=== PATIENT | female | born 1980 | race African-American/Black ===

== ENCOUNTER 2018-12-28 13:54 | Emergency (ER) | payer OTHER ==
--- NOTE | 2018-12-28 14:17 | PDOC ---
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 Over the weekend the pain was moderately controlled yesterday while again assisting with moving a patient and developed severe lower back discomfort Pain is moderate to severe worsening ambulation alleviated somewhat by rest no associated incontinence no fever no chills no chest pain or shortness of breath no nausea no vomiting diarrhea Past History - Past Medical History Allergies/Adverse Reactions: Allergies Allergy/AdvReac Type Severity Reaction Status Date / Time No Known Allergies Allergy Unverified 12/28/18 14:18 Home Medications: Ambulatory Orders Cyclobenzaprine HCl [Flexeril 10 mg] 1 tab PO PRN 12/28/18 Diazepam [Valium] 5 mg PO BID #10 tablet MDD 2 12/28/18 Ibuprofen [Motrin -] 800 mg PO PRN 12/28/18 Methylprednisolone [Medrol Dose Earl] 4 mg PO ASDIR #21 tablet 12/28/18 COPD: No Other medical history: DENIES - Suicide/Smoking/Psychosocial Hx Smoking History: Never smoked Information on smoking cessation initiated: No Hx Alcohol Use: No Drug/Substance Use Hx: No Review of Systems - Review of Systems Comments:: 12/28/18 17:54 ROS: A complete review of 10 out of 10 review of systems is taken and is negative apart from what is previously mentioned below and in the HPI. *Physical Exam - Vital Signs Last Vital Signs Temp Pulse Resp BP Pulse Ox 97.8 F 68 18 138/78 99 12/28/18 13:55 12/28/18 13:55 12/28/18 13:55 12/28/18 13:55 12/28/18 13:55 - Physical Exam Comments: 12/28/18 17:54 ED Treatment Course - LABORATORY CBC & Chemistry Diagram: 12/28/18 14:55 12/28/18 14:55 Medical Decision Making - Medical Decision Making 12/28/18 17:58 Moderate discomfort worsening lower back discomfort some CVA tenderness on exam we'll check labs urine CT to rule out occult fracture and renal colic observe and reassess Reevaluation pain initially controlled now returning CAT scan negative labs unremarkable urinalysis unremarkable at this time diagnosis is most likely low back discomfort muscle skeletal versus herniated disc patient will most likely require outpatient follow-up and MRI We'll try dose of Decadron and Valium observe and reassess. 12/28/18 18:24 Patient feels better able to ambulate with cane still in some discomfort but would like to try to go home I discussed my concern of a possible herniated disc with her I provided her with neurosurgical follow-up her repeat neurologic exam demonstrates good strength in her lower extremities We will discharge home with Medrol Dosepak and Valium and close follow-up Findings, the need for follow-up and strict return instructions discussed with patient. *DC/Admit/Observation/Transfer Diagnosis at time of Disposition: Low back pain Qualifiers: Chronicity: acute Back pain laterality: right Sciatica presence: without sciatica Qualified Code(s): M54.5 - Low back pain - Discharge Dispostion Disposition: HOME Condition at time of disposition: Stable Decision to Admit order: No - Prescriptions Prescriptions: Diazepam [Valium] 5 mg PO BID #10 tablet MDD 2 Methylprednisolone [Medrol Dose Earl] 4 mg PO ASDIR #21 tablet - Referrals Referrals: Solomon Esquivel MD, FAANS [Staff Physician] - - Patient Instructions Printed Discharge Instructions: Low Back Pain Additional Instructions: Medrol Dosepak as prescribed. Valium as prescribed. Follow-up with Dr. Gooden in 1-2 days. Ice lower back rest. Do not work. Return to ED immediately for any weakness numbness bowel or bladder incontinence or for any concerns. - Post Discharge Activity Forms/Work/School Notes: Back to Work
[2018-12-28 14:24] VITALS: BMI 32.9
[2018-12-28] MEDS ORDERED: SODIUM CHLORIDE 0.9% 1000 ML INFUS.BAG IV ONE (14:37)
[2018-12-28] MEDS ORDERED: morphine CARPU-JECT 4 MG/1 ML DISP.SYRIN IVPUSH ONE (14:37)
[2018-12-28] MEDS ORDERED: ACETAMINOPHEN 1000 MG/100 ML VIAL (NON FORMULARY) IVPB ONE (14:37)
[2018-12-28] MEDS ORDERED: ACETAMINOPHEN INJECTION 100 ML IVPB ONE (14:58)
[2018-12-28] MEDS ORDERED: morphine SULFATE 4 MG/ML VIAL ONE (15:05)
[2018-12-28 15:40] LABS: EPITHELIAL CELLS FEW /hpf
[2018-12-28 15:41] LABS: BASO % 0.9 % (0-2.0); EOS % 1.3 % (0-4.5); HEMATOCRIT 38.7 % (32.4-45.2); HEMOGLOBIN 13.1 GM/dl (10.7-15.3); LYMPH % 31.1 % (8-40); MCH 31.2 pg (25.7-33.7); MCHC 33.7 g/dl (32.0-36.0); MEAN CELL VOLUME 92.4 fl (80-96); MEAN PLT VOLUME 9.5 fl (7.5-11.1); MONO % 6.7 % (3.8-10.2); PLATELET COUNT 243 K/MM3 (134-434); RBC 4.19 M/mm3 (3.60-5.2); RDW 11.8 % (11.6-15.6); WHITE BLOOD COUNT 8.7 K/mm3 (4.0-10.8)
[2018-12-28 15:47] LABS: ALBUMIN 4.3 g/dl (3.4-5.0); BILIRUBIN,TOTAL 0.7 mg/dl (0.2-1); CALCIUM 9.2 mg/dl (8.5-10); CREATININE 0.8 mg/dl (0.55-1.3); POTASSIUM 3.9 mmol/L (3.5-5.1); TOT PROT 7.1 g/dl (6.4-8.2)
[2018-12-28 16:32] VITALS: BP 125/83; PULSE 81; TEMP 98.2
[2018-12-28] MEDS ORDERED: diazePAM 5 MG TABLET PO ONE (17:09)
[2018-12-28] MEDS ORDERED: DEXAMETHASONE SOD PHOSPHATE 4 MG/1 ML VIAL IVPUSH ONE (17:09)
[2018-12-28] MEDS ORDERED: DEXAMETHASONE SOD PHOSPHATE 4 MG/1 ML VIAL ONE (17:13)
[2018-12-28] MEDS ORDERED: diazePAM 5 MG TABLET ONE (17:13)
[2018-12-28] MEDS ORDERED: KETOROLAC TROMETHAMINE 30 MG/1 ML VIAL ONE (18:08)
[2018-12-28] MEDS ORDERED: LIDOCAINE 5% TOPICAL PATCH ONE (18:08)
[2018-12-28] MEDS ORDERED: KETOROLAC TROMETHAMINE 30 MG/1 ML VIAL IVPUSH ONE (18:13)
[2018-12-28] MEDS ORDERED: LIDOCAINE 5% TOPICAL PATCH TP ONE (18:13)
[2018-12-28] MEDS ORDERED: LIDOCAINE PATCH REMOVAL MC SCH (22:00)
== END 2018-12-28 18:38 | disposition home or self-care (01) ==
LOC: FER 13:54
PROC: 3E0337Z Introduction of Electrolytic and Water Balance Substance into Peripheral Vein, Percutaneous Approach (ICD-10-PCS; principal; 2018-12-28)
PROC: 3E033NZ Introduction of Analgesics, Hypnotics, Sedatives into Peripheral Vein, Percutaneous Approach (ICD-10-PCS; 2018-12-28)
PROC: 3E0333Z Introduction of Anti-inflammatory into Peripheral Vein, Percutaneous Approach (ICD-10-PCS; 2018-12-28)
PROC: 3E033GC Introduction of Other Therapeutic Substance into Peripheral Vein, Percutaneous Approach (ICD-10-PCS; 2018-12-28)
DX: M54.5 Low back pain (principal)
CPT/HCPCS: 36415; 74176-TC; 80053; 81003; 81015; 81025; 85025; 87077; 87086; 99283-25; J0131; J7030

== ENCOUNTER 2018-12-31 16:37 | Inpatient (IN) | payer OTHER ==
--- NOTE | 2018-12-31 16:47 | PDOC ---
History of Present Illness - General Chief Complaint: Back Pain Stated Complaint: BACK PAIN Time Seen by Provider: 12/31/18 16:47 History Source: Patient - History of Present Illness Initial Comments: 12/31/18 17:51 Chief complaint: Back pain pt is a healthy 38-year-old female who injured her back the beginning of been progressively getting worse. She was seen in the ER December 28, had labs, CT scan of abdomen and pelvis given that she had flank pain which showed no issue other than likely musculoskeletal pain. Patient had been taking Motrin 800 mg about every 4 hours. Patient was sent home on Valium, Medrol Dosepak and lidocaine patches. She followed up with Dr. Chandler neurosurgery and was supposed to get an MRI. In the past few days since she was seen in the ER the pain has gotten much worse to the point where patient was crying today. She was told to come to the ER for further evaluation. Dr. Chandler called the ER recommending labs, preop, MRI and he will evaluate to see if patient needs surgery. Patient denies any numbness, incontinence or saddle anesthesia but isn' t so much pain she is having difficulty walking. GENERAL/CONSTITUTIONAL: No fever, weakness. dizziness HEAD, EYES, EARS, NOSE AND THROAT: No change in vision. No ear pain or discharge. No sore throat. CARDIOVASCULAR: No chest pain RESPIRATORY: No shortness of breath or cough GASTROINTESTINAL: No pain, nausea, vomiting, diarrhea or constipation GENITOURINARY: No dysuria MUSCULOSKELETAL: No neck +back pain SKIN: No rash NEUROLOGIC: No headache, vertigo, loss of consciousness, or loss of sensation. GENERAL: The patient is awake, alert, and fully oriented, in no acute distress. HEAD: Normal with no signs of trauma. EYES: Pupils equal, round and reactive to light, sclera anicteric, conjunctiva clear. ENT: pharynx: no erythema, no exudate, uvula midline NECK: supple CHEST: clear, nontender, rr ABD: soft, nontender BACK: + left si tenderness EXTREMITIES: Normal range of motion, no edema. nv intact NEUROLOGICAL: Normal speech, unable to ambulate secondary to pain. no focal deficits. SKIN: Warm, Dry Past History - Past Medical History Allergies/Adverse Reactions: Allergies Allergy/AdvReac Type Severity Reaction Status Date / Time No Known Allergies Allergy Verified 12/31/18 16:39 Home Medications: Ambulatory Orders Cyclobenzaprine HCl [Flexeril 10 mg] 1 tab PO PRN 12/28/18 Diazepam [Valium] 5 mg PO BID #10 tablet MDD 2 12/28/18 Ibuprofen [Motrin -] 800 mg PO PRN 12/28/18 Lidocaine 5% Patch [Lidoderm Patch -] 1 patch TP DAILY #7 patch 12/28/18 Methylprednisolone [Medrol Dose Earl] 4 mg PO ASDIR #21 tablet 12/28/18 COPD: No - Suicide/Smoking/Psychosocial Hx Smoking History: Never smoked Hx Alcohol Use: No Drug/Substance Use Hx: No ED Treatment Course - LABORATORY CBC & Chemistry Diagram: 12/31/18 17:10 12/31/18 17:10 Medical Decision Making - Medical Decision Making 12/31/18 18:02 Healthy 38-year-old female with progressively worsening left back pain, which started after injury at work, now progressing down the leg, no numbness, no incontinence or saddle anesthesia but unable to control symptoms at home, unable to ambulate. Has seen neurosurgery. As directed by Dr. Perez, patient will get labs, MRI and he will further evaluate after MRI to see if immediate surgery is indicated. She will be kept nothing by mouth 12/31/18 21:32 MRI is complete, official reading reviewed by Dr. Esquivel who states there is no surgical issue but if patient is still in the same pain she should be admitted to the hospital and he will see her tonight tomorrow for stabilization and possible epidural. Micro-block sent to hospitalist this patient's PMD is in [place] and not on staff 12/31/18 22:11 Bank reports that patient has antibodies in her blood but they did not have enough blood to run a, if patient needs full type and screen, it should be re- sent 12/31/18 22:46 Pt will be admitted by Dr. Kingsley, hospitalist *DC/Admit/Observation/Transfer Diagnosis at time of Disposition: Intractable low back pain - Discharge Dispostion Condition at time of disposition: Stable Decision to Admit order: Yes - Referrals - Patient Instructions - Post Discharge Activity
[2018-12-31] MEDS ORDERED: morphine CARPU-JECT 4 MG/1 ML DISP.SYRIN IVPUSH ONE ×2 (17:07→21:23)
[2018-12-31] MEDS ORDERED: morphine SULFATE 4 MG/ML VIAL ONE ×2 (17:13→22:39)
[2018-12-31 17:43] LABS: BASO % 0.5 % (0-2.0); EOS % 0.1 % (0-4.5); HEMATOCRIT 39.1 % (32.4-45.2); HEMOGLOBIN 13.4 GM/dL (10.7-15.3); LYMPH % 23.5 % (8-40); MCHC 34.2 g/dl (32.0-36.0); MEAN CELL VOLUME 90.8 fl (80-96); MEAN PLT VOLUME 8.9 fl (7.5-11.1); MONO % 6.8 % (3.8-10.2); NEUT % 69.1 % (42.8-82.8); PLATELET COUNT 289 K/MM3 (134-434); RBC 4.31 M/mm3 (3.60-5.2); RDW 12.7 % (11.6-15.6); WHITE BLOOD COUNT 14.7 K/mm3 (4.0-10.0)
[2018-12-31 18:14] LABS: INR 0.96 (0.83-1.09); PROTHROMBIN TIME (PATIENT) 11.3 SEC (9.7-13.0)
[2018-12-31 18:19] LABS: ALBUMIN 3.8 g/dl (3.4-5.0); BILIRUBIN,TOTAL 0.3 mg/dL (0.2-1); BLOOD UREA NITROGEN 19.4 mg/dL (7-18); CALCIUM 9.6 mg/dL (8.5-10.1); CREATININE 0.7 mg/dL (0.55-1.3); POTASSIUM 4.3 mmol/L (3.5-5.1); TOT PROT 7.4 g/dl (6.4-8.2)
--- NOTE | 2018-12-31 23:03 | PN ---
Teaching Attending Note Name of Resident: Radha Ahumada ATTENDING PHYSICIAN STATEMENT I saw and evaluated the patient. I reviewed the resident's note and discussed the case with the resident. I agree with the resident's findings and plan as documented. SUBJECTIVE: Patient is a 38 year old woman with PMH of breast lumpectomy who injured her back while lifting a patient in the beginning of presenting with progressively worsening low back pain. She was seen in the ER on December 28, 2018 - CT scan of abdomen and pelvis was unremarkable. Patient had been taking Motrin 800 mg about every 4 hours. Patient was sent home on Valium, Medrol Dosepak and lidocaine patches. She followed up with Dr. Chandler neurosurgery and was supposed to get an MRI. In the past few days since she was seen in the ER the pain has gotten much worse to the point where patient was crying today. She was told to come to the ER for further evaluation. Dr. Chandler called the ER recommending labs, preop, MRI and he will evaluate to see if patient needs surgery. Has constipation. Patient denies any numbness, incontinence or saddle anesthesia but is in so much pain she is having difficulty walking. Patient has an IUD. OBJECTIVE: Alert Vital Signs Period Temp Pulse Resp BP Sys/Foley Pulse Ox Last 24 Hr 98.0 F 80-85 18 130-137/79-94 99-100 HEENT: No Jaundice, eye redness or discharge, PERRLA, EOMI. Normocephalic, atraumatic. External ears are normal and hearing is grossly intact. No nasal discharge. Neck: Supple, nontender. No palpable adenopathy or thyromegaly. No JVD Chest: Good effort. Clear to auscultation and percussion. Heart: Regular. No S3, rub or murmur Abdomen: Not distended, soft, nontender and no HSM. No rebound or guarding. Normal bowel sounds. Ext: Peripheral pulses intact. No leg edema. Skin: Warm and dry. No petechiae, rash or ecchymosis. Neuro: Alert. Oriented x3. CN 2-12 grossly intact. Sensation grossly intact in all four extremities and DTR are symmetric. Pain with straight leg raising. Plantar reflexes are flexor. Gait not tested for safety reasons. Psych: Appropriate mood and affect. Good insight. Home Medications Medication Instructions Recorded Cyclobenzaprine HCl [Flexeril 10 1 tab PO PRN 12/28/18 mg] Diazepam [Valium] 5 mg PO BID #10 tablet MDD 2 12/28/18 Ibuprofen [Motrin -] 800 mg PO PRN 12/28/18 Lidocaine 5% Patch [Lidoderm Patch 1 patch TP DAILY #7 patch 12/28/18 -] Methylprednisolone [Medrol Dose 4 mg PO ASDIR #21 tablet 12/28/18 Earl] Abnormal Lab Results 12/31/18 12/31/18 17:10 17:10 WBC 14.7 H Absolute Neuts (auto) 10.2 H Sodium 146 H Chloride 111 H BUN 19.4 H AST 13 L ASSESSMENT AND PLAN: 1. Post injury severe low back pain - Official report of lumbar MRI pending. Will treat with IV morphine, prednisone, tramadol, lidocaine patch, PO protonix and use Miralax 17 gm po bid for constipation. NPO after midnight and gentle IV hydration. Leukocytosis likely due to recent steroid therapy. UA and EKG pending. Neurosurgery consulted. 2. Obesity Counseled on the risks associated with obesity. Will provide patient all the necessary assistance, counseling and positive reinforcement to facilitate weight loss. Consult teaching manager. 3. DVT prophylaxis - Lovenox 40 mg SQ q 24 hours. 4. Advance directives - Full code
[2018-12-31] MEDS ORDERED: traMADol HCL 50 MG TABLET PO PRN (23:55)
[2019-01-01] MEDS: LIDOCAINE PATCH REMOVAL MC SCH ×3 (00:45→22:00)
[2019-01-01] MEDS: POLYETHYLENE GLYCOL 3350 119 GM BTL PO SCH ×3 (00:49→21:13)
--- NOTE | 2019-01-01 00:50 | HP ---
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 She initially did not think much of it and took some motrin 800 mg and it did not improve so she went to her PCP and they gave her flexaril, and continue the motrin but soon after her symptoms worsened despite treatment. Patient then presented to the ED on and was sent home on Valium, Medrol Dosepak and lidocaine patches and CT scan abd/pelvis was unremarkable. She followed up with Dr. Chandler neurosurgery and was supposed to get an MRI. In the past few days since she was seen in the ER the pain has gotten much worse to the point where patient was crying today. She was told to come to the ER for further evaluation. Dr. Chandler called the ER recommending labs, preop, MRI and to evaluate if patient needs surgery. Patient states she woke up this AM and could not move. She states initially the pain was in the middle of her lower back but since lidocaine patch was placed the pain shifted to the left side mainly and describes it as an excruciating sharp pain of 10/10 in intensity, accompanied by numbness in her ipsilateral buttock. She denies any bowel or bladder incontinence but endorses waking up in the middle of the night for pain. ER course was notable for: (1) UA negative (2) (3) Recent Travel: none PAST MEDICAL HISTORY: none PAST SURGICAL HISTORY: lumpectomy b/l Social History: Smoking:no Alcohol:no Drugs: no Family History: mom- healthy dad- of prostate CA sister of BRCA Allergies No Known Allergies Allergy (Verified 12/31/18 16:39) HOME MEDICATIONS: Home Medications Medication Instructions Recorded Cyclobenzaprine HCl [Flexeril 10 1 tab PO PRN 12/28/18 mg] Diazepam [Valium] 5 mg PO BID #10 tablet MDD 2 12/28/18 Ibuprofen [Motrin -] 800 mg PO PRN 12/28/18 Lidocaine 5% Patch [Lidoderm Patch 1 patch TP DAILY #7 patch 12/28/18 -] Methylprednisolone [Medrol Dose 4 mg PO ASDIR #21 tablet 12/28/18 Earl] REVIEW OF SYSTEMS Negative except as in HPI. PHYSICAL EXAMINATION Vital Signs - 24 hr 12/31/18 12/31/18 01/01/19 16:40 22:45 00:45 Temperature 98.0 F Pulse Rate 85 Pulse Rate [ 80 70 Radial] Respiratory 18 Rate Blood Pressure 137/94 Blood Pressure 130/79 113/76 [Left Arm] O2 Sat by Pulse 100 99 99 Oximetry (%) GENERAL: Awake, alert, and fully oriented, in acute distress. NECK: Normal range of motion, supple without lymphadenopathy, JVD, or masses. LUNGS: Breath sounds equal, clear to auscultation bilaterally. No wheezes, and no crackles. No accessory muscle use. HEART: Regular rate and rhythm, normal S1 and S2 without murmur, rub or gallop. ABDOMEN: Soft, slightly tender left side probably referred from back, not distended, normoactive bowel sounds, MUSCULOSKELETAL: Left lower back pain and numbness in left buttock, positive single leg raise test, . UPPER EXTREMITIES: warm, well-perfused. No peripheral edema. LOWER EXTREMITIES: warm, well-perfused. No peripheral edema. NEUROLOGICAL: Cranial nerves II-XII intact. Normal speech. PSYCHIATRIC: Cooperative. Good eye contact. Appropriate mood and affect. SKIN: Warm, dry, normal turgor, no rashes or lesions noted. Laboratory Results - last 24 hr 12/31/18 12/31/18 12/31/18 17:10 17:10 17:10 WBC 14.7 H RBC 4.31 Hgb 13.4 Hct 39.1 MCV 90.8 MCH 31.0 MCHC 34.2 RDW 12.7 Plt Count 289 MPV 8.9 Absolute Neuts (auto) 10.2 H Neutrophils % 69.1 Lymphocytes % 23.5 Monocytes % 6.8 Eosinophils % 0.1 Basophils % 0.5 Nucleated RBC % 0 PT with INR INR PTT (Actin FS) 27.0 Sodium 146 H Potassium 4.3 Chloride 111 H Carbon Dioxide 25 Anion Gap 10 BUN 19.4 H Creatinine 0.7 Est GFR (CKD-EPI)AfAm 129.19 Est GFR (CKD-EPI)NonAf 111.47 Random Glucose 97 Calcium 9.6 Total Bilirubin 0.3 AST 13 L ALT 25 Alkaline Phosphatase 102 Total Protein 7.4 Albumin 3.8 Blood Type Antibody Screen Antibody Identification Antigen Identification 12/31/18 12/31/18 12/31/18 17:10 18:52 18:52 WBC RBC Hgb Hct MCV MCH MCHC RDW Plt Count MPV Absolute Neuts (auto) Neutrophils % Lymphocytes % Monocytes % Eosinophils % Basophils % Nucleated RBC % PT with INR 11.30 INR 0.96 PTT (Actin FS) Sodium Potassium Chloride Carbon Dioxide Anion Gap BUN Creatinine Est GFR (CKD-EPI)AfAm Est GFR (CKD-EPI)NonAf Random Glucose Calcium Total Bilirubin AST ALT Alkaline Phosphatase Total Protein Albumin Blood Type B POSITIVE Antibody Screen Positive H Antibody Identification Lc Antigen Identification c Antigen - NEGATIVE E Antigen - NEGATIVE ASSESSMENT/PLAN: #L5/S1 moderate degenerative changes 2/2 to weight bearing injury - Lumbar MRI pending. - IV morphine 2mg q2hrs prn - 40mg PO prednisone daily - 15mg tramadol, - continue lidocaine patch - 40mg PO protonix - Miralax 17 gm po bid for constipation probably from pain meds. - NPO after midnight and gentle IV hydration. - Leukocytosis likely due to recent steroid therapy. - UA and EKG pending. - Dr. Carey Neurosurgery consulted. #Obesity - Counseled on the risks associated with obesity. - Will provide patient all the necessary assistance, counseling and positive reinforcement to facilitate weight loss. - Consult real estate administrator. 3. DVT prophylaxis - Lovenox 40 mg SQ q 24 hours. 4. Advance directives - Full code Visit type - Emergency Visit Emergency Visit: Yes ED Registration Date: 12/31/18 Care time: The patient presented to the Emergency Department on the above date and was hospitalized for further evaluation of their emergent condition. - New Patient This patient is new to me today: Yes Date on this admission: 01/01/19 - Critical Care Critical Care patient: No ATTENDING PHYSICIAN STATEMENT I saw and evaluated the patient. I reviewed the resident's note and discussed the case with the resident. I agree with the resident's findings and plan as documented. SUBJECTIVE: OBJECTIVE: ASSESSMENT AND PLAN:
[2019-01-01] MEDS: MORPHINE SULFATE 2 MG/ML VIAL IVPUSH PRN ×2 (03:28→08:54)
[2019-01-01] MEDS ORDERED: MORPHINE SULFATE 2 MG/ML VIAL IVPUSH ONE (04:17)
[2019-01-01] MEDS ORDERED: MORPHINE SULFATE 2 MG/ML VIAL ONE (04:20)
[2019-01-01 05:19] LABS: PH,URINE 6.5 (5.0-8.0); URINE APPEARANCE CLEAR; URINE BILIRUBIN NEGATIVE (NEGATIVE); URINE COLOR YELLOW; URINE GLUCOSE (UA) NEGATIVE (NEGATIVE); URINE KETONE NEGATIVE (NEGATIVE); URINE LEUK ESTERASE NEGATIVE (NEGATIVE); URINE NITRITE NEGATIVE (NEGATIVE); URINE PROTEIN NEGATIVE (NEGATIVE); URINE UROBILINOGEN 0.2 mg/dL (0.2-1.0)
[2019-01-01 05:30] VITALS: BMI 32.5
[2019-01-01] MEDS ORDERED: SODIUM CHLORIDE 0.45% 1,000 ML IV SCH (08:30)
[2019-01-01 08:31] LABS: ALBUMIN 3.5 g/dl (3.4-5.0); BILIRUBIN,TOTAL 0.7 mg/dL (0.2-1); BLOOD UREA NITROGEN 14.4 mg/dL (7-18); CALCIUM 8.7 mg/dL (8.5-10.1); CREATININE 0.8 mg/dL (0.55-1.3); MAGNESIUM 2.4 mg/dL (1.8-2.4); PHOSPHOROUS 3.9 mg/dL (2.5-4.9); POTASSIUM 3.7 mmol/L (3.5-5.1); TOT PROT 6.7 g/dl (6.4-8.2)
[2019-01-01 08:42] LABS: BASO % 0.3 % (0-2.0); EOS % 0.5 % (0-4.5); HEMATOCRIT 38.7 % (32.4-45.2); HEMOGLOBIN 13.1 GM/dL (10.7-15.3); LYMPH % 38.1 % (8-40); MCH 30.6 pg (25.7-33.7); MCHC 33.9 g/dl (32.0-36.0); MEAN CELL VOLUME 90.2 fl (80-96); MEAN PLT VOLUME 8.6 fl (7.5-11.1); MONO % 6.7 % (3.8-10.2); NEUT % 54.4 % (42.8-82.8); PLATELET COUNT 243 K/MM3 (134-434); RBC 4.28 M/mm3 (3.60-5.2); RDW 12.3 % (11.6-15.6); WHITE BLOOD COUNT 10.5 K/mm3 (4.0-10.0)
[2019-01-01] MEDS: LIDOCAINE 5% TOPICAL PATCH TP SCH (09:01)
[2019-01-01] MEDS: predniSONE 20 MG TABLET (UD) PO SCH (09:02)
[2019-01-01] MEDS: PANTOPRAZOLE 40 MG TABLET (FP) PO SCH (09:02)
[2019-01-01] MEDS: ENOXAPARIN NA (PORCINE) 40 MG/0.4 ML DISP.SYRIN SQ SCH (09:02)
[2019-01-01] MEDS: traMADol HCL 50 MG TABLET PO PRN ×2 (10:27→21:14)
--- NOTE | 2019-01-01 15:52 | PN ---
Progress Note (short form) - Note Progress Note: Patient is c/o having low back pain, asking for . as er patient is not able to ambulate. Vital Signs Temperature 97.8 F 01/01/19 15:45 Pulse Rate 89 01/01/19 15:45 Respiratory Rate 20 01/01/19 10:00 Blood Pressure 143/85 01/01/19 15:45 O2 Sat by Pulse Oximetry (%) 98 01/01/19 10:00 GENERAL: Awake, alert, and fully oriented, in acute distress. NECK: Normal range of motion, supple without lymphadenopathy, JVD, or masses. LUNGS: Breath sounds equal, clear to auscultation bilaterally. No wheezes, and no crackles. No accessory muscle use. HEART: Regular rate and rhythm, normal S1 and S2 without murmur, rub or gallop. ABDOMEN: Soft, slightly tender left side probably referred from back, not distended, normoactive bowel sounds, MUSCULOSKELETAL: Left lower back pain , unable to ambulate. EXTREMITIES: warm, well-perfused. No peripheral edema. NEUROLOGICAL: Cranial nerves II-XII intact. Normal speech. PSYCHIATRIC: Cooperative. Good eye contact. Appropriate mood and affect. SKIN: Warm, dry, normal turgor, no rashes or lesions noted. CBCD WBC 10.5 K/mm3 (4.0-10.0) H 01/01/19 07:18 RBC 4.28 M/mm3 (3.60-5.2) 01/01/19 07:18 Hgb 13.1 GM/dL (10.7-15.3) 01/01/19 07:18 Hct 38.7 % (32.4-45.2) 01/01/19 07:18 MCV 90.2 fl (80-96) 01/01/19 07:18 MCHC 33.9 g/dl (32.0-36.0) 01/01/19 07:18 RDW 12.3 % (11.6-15.6) 01/01/19 07:18 Plt Count 243 K/MM3 (134-434) 01/01/19 07:18 MPV 8.6 fl (7.5-11.1) 01/01/19 07:18 CMP Sodium 137 mmol/L (136-145) 01/01/19 07:18 Potassium 3.7 mmol/L (3.5-5.1) 01/01/19 07:18 Chloride 103 mmol/L (98-107) 01/01/19 07:18 Carbon Dioxide 29 mmol/L (21-32) 01/01/19 07:18 Anion Gap 5 MMOL/L (8-16) L 01/01/19 07:18 BUN 14.4 mg/dL (7-18) 01/01/19 07:18 Creatinine 0.8 mg/dL (0.55-1.3) 01/01/19 07:18 Random Glucose 89 mg/dL (74-106) 01/01/19 07:18 Calcium 8.7 mg/dL (8.5-10.1) 01/01/19 07:18 Total Bilirubin 0.7 mg/dL (0.2-1) 01/01/19 07:18 AST 7 U/L (15-37) L 01/01/19 07:18 ALT 22 U/L (13-61) 01/01/19 07:18 Alkaline Phosphatase 75 U/L (45-117) 01/01/19 07:18 Total Protein 6.7 g/dl (6.4-8.2) 01/01/19 07:18 Albumin 3.5 g/dl (3.4-5.0) 01/01/19 07:18 Current Medications Generic Name Dose Route Start Last Admin Trade Name Freq PRN Reason Stop Dose Admin Docusate Sodium 300 mg 01/01/19 22:00 Colace - PO HS ILANA Enoxaparin Sodium 40 mg 01/01/19 10:00 01/01/19 09:02 Lovenox - SQ 40 mg DAILY ILANA Administration Lidocaine 1 patch 01/01/19 10:00 01/01/19 09:01 Lidoderm Patch - TP 1 patch DAILY ILANA Administration Miscellaneous 1 each 12/31/18 22:00 01/01/19 00:45 Lidoderm Patch Removal MC Not Given DAILY@2200 ILANA Morphine Sulfate 2 mg 12/31/18 23:56 01/01/19 08:54 Morphine Sulfate IVPUSH 2 mg Q4H PRN Administration PAIN LEVEL 6-10 Pantoprazole Sodium 40 mg 01/01/19 10:00 01/01/19 09:02 Protonix - PO 40 mg DAILY ILANA Administration Polyethylene Glycol 17 gm 12/31/18 23:45 01/01/19 11:50 Miralax (For Daily Use) - PO 17 gm BID ILANA Administration Prednisone 40 mg 01/01/19 10:00 01/01/19 09:02 Deltasone - PO 40 mg DAILY ILANA Administration Tramadol HCl 25 mg 01/01/19 10:03 01/01/19 10:27 Ultram - PO 25 mg Q6H PRN Administration PAIN LEVEL 4 - 6 Home Medications Medication Instructions Recorded Cyclobenzaprine HCl [Flexeril 10 1 tab PO PRN 12/28/18 mg] Diazepam [Valium] 5 mg PO BID #10 tablet MDD 2 12/28/18 Ibuprofen [Motrin -] 800 mg PO PRN 12/28/18 Lidocaine 5% Patch [Lidoderm Patch 1 patch TP DAILY #7 patch 12/28/18 -] Methylprednisolone [Medrol Dose 4 mg PO ASDIR #21 tablet 12/28/18 Earl] Assessment and plan: Patient is a 38 y/o Female with no PMHx who stated that she injured her back in early December while repositioning a patient. #Low Back pain L5/S1 : there is a tear in the annulus with midline disc protrusion evident on sagittal T2#7 with minimal indentation right S1 nerve root. #Obesity: weight loss DVT prophylaxis - Lovenox 40 mg SQ Visit type - Emergency Visit Emergency Visit: Yes ED Registration Date: 12/31/18 Care time: The patient presented to the Emergency Department on the above date and was hospitalized for further evaluation of their emergent condition. - New Patient This patient is new to me today: Yes Date on this admission: 01/01/19 - Critical Care Critical Care patient: No - Discharge Referral Referred to [facility] Med P.C.: No
--- NOTE | 2019-01-01 17:47 | CONSULT ---
Consult - text type - Consultation Consultation Note: NEUROSURGERY CONSULTATION Patient admitted from ER with severe back pain She had presented to the ER last week after heavy lifting incident exacerbated her back pain. She was referred to my office with degenerative changes at L5S1 on CT. Due to severe and progressing back pain, patient sent for MRI. Delays in establishing a Workers Comp claim resulted in some delay in MRI approval and scheduling. Patient called our office extremely frequently and was crying. Patient then presented to ER with difficulty ambulating. MRI demonstrates L5S1 degenerative changes with endplate irregularities and annular tear. Due to acute nature of injury and MRI findings, conservative management would be best initial treatment. I explained that surgery would be reserved for development of neurological deficits, pain persisting for 8 weeks or intractable pain despite all conservative efforts. Indeed, the patient has no interest in surgery. I suggest TLSO brace, and pain management for Epidural Steroids as well as Physical therapy. If Pain management is not readily available, Medrol dosepack could be considered. No acute Neurosurgical intervention indicated or planned.
[2019-01-01] MEDS: DOCUSATE SODIUM 100 MG CAPSULE (FP) PO SCH (21:13)
--- NOTE | 2019-01-02 00:04 | EKG ---
Test Reason : Blood Pressure : / mmHG Vent. Rate : 067 BPM Atrial Rate : 067 BPM P-R Int : 178 ms QRS Dur : 082 ms QT Int : 392 ms P-R-T Axes : 059 071 037 degrees QTc Int : 414 ms NORMAL SINUS RHYTHM NONSPECIFIC T WAVE ABNORMALITY ABNORMAL ECG NO PREVIOUS ECGS AVAILABLE Confirmed by ROLA BLANCO, SUAD ([id number]) on 01/02/2019 12:03:45 AM Referred By: Confirmed By:SUAD CANELA MD
[2019-01-02] MEDS: traMADol HCL 50 MG TABLET PO PRN ×3 (05:34→21:30)
[2019-01-02] MEDS: LIDOCAINE 5% TOPICAL PATCH TP SCH (10:42)
[2019-01-02] MEDS: predniSONE 20 MG TABLET (UD) PO SCH (10:42)
[2019-01-02] MEDS: ENOXAPARIN NA (PORCINE) 40 MG/0.4 ML DISP.SYRIN SQ SCH (10:42)
[2019-01-02] MEDS: PANTOPRAZOLE 40 MG TABLET (FP) PO SCH (10:43)
[2019-01-02] MEDS: POLYETHYLENE GLYCOL 3350 119 GM BTL PO SCH ×2 (10:43→21:34)
--- NOTE | 2019-01-02 14:56 | PN ---
Teaching Attending Note Name of Resident: Alexia Franco ATTENDING PHYSICIAN STATEMENT I saw and evaluated the patient. I reviewed the resident's note and discussed the case with the resident. I agree with the resident's findings and plan as documented. SUBJECTIVE: Patient is comfortable, feeling better. OBJECTIVE: Vital Signs Temperature 98.4 F 01/02/19 09:00 Pulse Rate 87 01/02/19 09:00 Respiratory Rate 18 01/02/19 09:00 Blood Pressure 136/86 01/02/19 09:00 O2 Sat by Pulse Oximetry (%) 100 01/02/19 09:00 GENERAL: Awake, alert, and fully oriented, in acute distress. NECK: Normal range of motion, supple without lymphadenopathy, JVD, or masses. LUNGS: Breath sounds equal, clear to auscultation bilaterally. No wheezes, and no crackles. No accessory muscle use. HEART: Regular rate and rhythm, normal S1 and S2 without murmur, rub or gallop. ABDOMEN: Soft, slightly tender left side probably referred from back, not distended, normoactive bowel sounds, MUSCULOSKELETAL: Left lower back pain , unable to ambulate. EXTREMITIES: warm, well-perfused. No peripheral edema. NEUROLOGICAL: Cranial nerves II-XII intact. Normal speech. PSYCHIATRIC: Cooperative. Good eye contact. Appropriate mood and affect. SKIN: Warm, dry, normal turgor, no rashes or lesions noted. CBCD WBC 10.5 K/mm3 (4.0-10.0) H 01/01/19 07:18 RBC 4.28 M/mm3 (3.60-5.2) 01/01/19 07:18 Hgb 13.1 GM/dL (10.7-15.3) 01/01/19 07:18 Hct 38.7 % (32.4-45.2) 01/01/19 07:18 MCV 90.2 fl (80-96) 01/01/19 07:18 MCHC 33.9 g/dl (32.0-36.0) 01/01/19 07:18 RDW 12.3 % (11.6-15.6) 01/01/19 07:18 Plt Count 243 K/MM3 (134-434) 01/01/19 07:18 MPV 8.6 fl (7.5-11.1) 01/01/19 07:18 CMP Sodium 137 mmol/L (136-145) 01/01/19 07:18 Potassium 3.7 mmol/L (3.5-5.1) 01/01/19 07:18 Chloride 103 mmol/L (98-107) 01/01/19 07:18 Carbon Dioxide 29 mmol/L (21-32) 01/01/19 07:18 Anion Gap 5 MMOL/L (8-16) L 01/01/19 07:18 BUN 14.4 mg/dL (7-18) 01/01/19 07:18 Creatinine 0.8 mg/dL (0.55-1.3) 01/01/19 07:18 Random Glucose 89 mg/dL (74-106) 01/01/19 07:18 Calcium 8.7 mg/dL (8.5-10.1) 01/01/19 07:18 Total Bilirubin 0.7 mg/dL (0.2-1) 01/01/19 07:18 AST 7 U/L (15-37) L 01/01/19 07:18 ALT 22 U/L (13-61) 01/01/19 07:18 Alkaline Phosphatase 75 U/L (45-117) 01/01/19 07:18 Total Protein 6.7 g/dl (6.4-8.2) 01/01/19 07:18 Albumin 3.5 g/dl (3.4-5.0) 01/01/19 07:18 Current Medications Generic Name Dose Route Start Last Admin Trade Name Freq PRN Reason Stop Dose Admin Docusate Sodium 300 mg 01/01/19 22:00 01/01/19 21:13 Colace - PO 300 mg HS ILANA Administration Enoxaparin Sodium 40 mg 01/01/19 10:00 01/02/19 10:42 Lovenox - SQ 40 mg DAILY ILANA Administration Lidocaine 1 patch 01/01/19 10:00 01/02/19 10:42 Lidoderm Patch - TP 1 patch DAILY ILANA Administration Miscellaneous 1 each 12/31/18 22:00 01/01/19 22:00 Lidoderm Patch Removal MC Not Given DAILY@2200 ILANA Morphine Sulfate 2 mg 12/31/18 23:56 01/01/19 08:54 Morphine Sulfate IVPUSH 2 mg Q4H PRN Administration PAIN LEVEL 6-10 Pantoprazole Sodium 40 mg 01/01/19 10:00 01/02/19 10:43 Protonix - PO 40 mg DAILY ILANA Administration Polyethylene Glycol 17 gm 12/31/18 23:45 01/02/19 10:43 Miralax (For Daily Use) - PO 17 gm BID ILANA Administration Prednisone 40 mg 01/01/19 10:00 01/02/19 10:42 Deltasone - PO 40 mg DAILY ILANA Administration Tramadol HCl 25 mg 01/01/19 10:03 01/02/19 13:01 Ultram - PO 25 mg Q6H PRN Administration PAIN LEVEL 4 - 6 Home Medications Medication Instructions Recorded Cyclobenzaprine HCl [Flexeril 10 1 tab PO PRN 12/28/18 mg] Diazepam [Valium] 5 mg PO BID #10 tablet MDD 2 12/28/18 Ibuprofen [Motrin -] 800 mg PO PRN 12/28/18 Lidocaine 5% Patch [Lidoderm Patch 1 patch TP DAILY #7 patch 12/28/18 -] Methylprednisolone [Medrol Dose 4 mg PO ASDIR #21 tablet 12/28/18 Earl] ASSESSMENT AND PLAN: Patient is a 38 y/o Female with no PMHx who stated that she injured her back in early December while repositioning a patient. #Low Back pain L5/S1 : there is a tear in the annulus with midline disc protrusion evident on sagittal T2#7 with minimal indentation right S1 nerve root. seen by , conservative management for now. #Obesity: weight loss DVT prophylaxis - Lovenox 40 mg SQ
--- NOTE | 2019-01-02 16:47 | PN ---
Physical Exam: SUBJECTIVE: Patient seen and examined at bedside this morning. No acute events overnight. Patient reported improvement of back pain, relieved by Tramadol and lidocaine patch. She denies any fever, chills, headache, dizziness, chest pain, SOB, abdominal pain, diarrhea, urinary symptoms. Denies weakness, numbness, tingling. OBJECTIVE: Vital Signs Temperature 98.1 F 01/02/19 15:46 Pulse Rate 91 H 01/02/19 15:46 Respiratory Rate 18 01/02/19 09:00 Blood Pressure 135/74 01/02/19 15:46 O2 Sat by Pulse Oximetry (%) 100 01/02/19 09:00 GENERAL: The patient is awake, alert, and fully oriented, in no acute distress. HEAD: Normal with no signs of trauma. EYES: PERRLa, EOMI, sclera anicteric, conjunctiva clear. ENT: moist mucous membranes. NECK: Trachea midline, full range of motion, supple. LUNGS: Breath sounds equal, clear to auscultation bilaterally. HEART: Regular rate and rhythm, S1, S2 without murmur, rub or gallop. ABDOMEN: Soft, nontender, nondistended, normoactive bowel sounds. EXTREMITIES: 2+ pulses, warm, well-perfused, no edema. NEUROLOGICAL: AAO x3. Cranial nerves II through XII grossly intact. Normal speech, gait not observed. Motor 4/5 b/L LE limited by pain. Sensation intact. PSYCH: Normal mood, normal affect. SKIN: Warm, dry, normal turgor, no rashes or lesions noted Active Medications Generic Name Dose Route Start Last Admin Trade Name Acq PRN Reason Stop Dose Admin Docusate Sodium 300 mg 01/01/19 22:00 01/01/19 21:13 Colace - PO 300 mg HS ILANA Administration Enoxaparin Sodium 40 mg 01/01/19 10:00 01/02/19 10:42 Lovenox - SQ 40 mg DAILY ILANA Administration Lidocaine 1 patch 01/01/19 10:00 01/02/19 10:42 Lidoderm Patch - TP 1 patch DAILY ILANA Administration Miscellaneous 1 each 12/31/18 22:00 01/01/19 22:00 Lidoderm Patch Removal MC Not Given DAILY@2200 ILANA Morphine Sulfate 2 mg 12/31/18 23:56 01/01/19 08:54 Morphine Sulfate IVPUSH 2 mg Q4H PRN Administration PAIN LEVEL 6-10 Pantoprazole Sodium 40 mg 01/01/19 10:00 01/02/19 10:43 Protonix - PO 40 mg DAILY ILANA Administration Polyethylene Glycol 17 gm 12/31/18 23:45 01/02/19 10:43 Miralax (For Daily Use) - PO 17 gm BID ILANA Administration Prednisone 40 mg 01/01/19 10:00 01/02/19 10:42 Deltasone - PO 40 mg DAILY ILANA Administration Tramadol HCl 25 mg 01/01/19 10:03 01/02/19 13:01 Ultram - PO 25 mg Q6H PRN Administration PAIN LEVEL 4 - 6 ASSESSMENT/PLAN: Patient is a 38 year old female with no significant past medical history presented to the ED due to worsening low back pain 2/2 heavy lifting. #Low back pain -L/S MRI: -IV Morphine and PO Tramadol PRN for pain -Lidocaine patch -Miralax for constipation -Neurosurgery (Dr. Esquivel) consulted. Recommendations appreciated. -No surgical intervention at this time. -Recommend pain management consult for possible epidural steroids -Prednisone 40mg daily -Physical therapy -TLSO brace #FEN -Not on any standing fluids -Electrolytes wnl, routine bmp monitoring -Regular diet #Prophylaxis -Lovenox 40mg sq daily #Disposition -full code -med surg Visit type - Emergency Visit Emergency Visit: Yes ED Registration Date: 12/31/18 Care time: The patient presented to the Emergency Department on the above date and was hospitalized for further evaluation of their emergent condition. - New Patient This patient is new to me today: Yes Date on this admission: 01/02/19 - Critical Care Critical Care patient: No ATTENDING PHYSICIAN STATEMENT I saw and evaluated the patient. I reviewed the resident's note and discussed the case with the resident. I agree with the resident's findings and plan as documented. SUBJECTIVE: OBJECTIVE: ASSESSMENT AND PLAN:
[2019-01-02] MEDS: DOCUSATE SODIUM 100 MG CAPSULE (FP) PO SCH (21:31)
[2019-01-02] MEDS: LIDOCAINE PATCH REMOVAL MC SCH (21:34)
[2019-01-03] MEDS: MORPHINE SULFATE 2 MG/ML VIAL IVPUSH PRN ×2 (02:47→09:34)
[2019-01-03 05:35] VITALS: BP 140/85; PULSE 65; TEMP 97.7
[2019-01-03] MEDS: PANTOPRAZOLE 40 MG TABLET (FP) PO SCH (09:34)
[2019-01-03] MEDS: ENOXAPARIN NA (PORCINE) 40 MG/0.4 ML DISP.SYRIN SQ SCH (09:34)
[2019-01-03] MEDS: LIDOCAINE 5% TOPICAL PATCH TP SCH (09:34)
[2019-01-03] MEDS: predniSONE 20 MG TABLET (UD) PO SCH (09:34)
[2019-01-03] MEDS: POLYETHYLENE GLYCOL 3350 119 GM BTL PO SCH (09:35)
[2019-01-03] MEDS ORDERED: CYCLOBENZAPRINE HCL 5 MG TABLET PO SCH (10:45)
--- NOTE | 2019-01-03 13:38 | DS ---
Physical Exam: SUBJECTIVE: Patient seen and examined at the bedside. No acute events overnight. Patient still in pain but less than the time of admission. OBJECTIVE: Vital Signs Period Temp Pulse Resp BP Sys/Foley Pulse Ox Last 24 Hr 97.7 F-98.1 F 65-91 18-18 132-140/74-85 100 PHYSICAL EXAM GENERAL: The patient is awake, alert, and fully oriented, in slight acute distress. HEAD: Normal with no signs of trauma. EYES: PERRL, extraocular movements intact, sclera anicteric, conjunctiva clear. NECK: Trachea midline, full range of motion, supple. LUNGS: Breath sounds equal, clear to auscultation bilaterally, no wheezes, no crackles, no accessory muscle use. HEART: Regular rate and rhythm, S1, S2 without murmur, rub or gallop. ABDOMEN: Soft, nontender, nondistended, normoactive bowel sounds, no guarding, no rebound, no masses. EXTREMITIES: left lower back and buttock numbness, warm, well-perfused, no edema. NEUROLOGICAL: Cranial nerves II through XII grossly intact. Normal speech, gait not observed. PSYCH: Normal mood, normal affect. SKIN: Warm, dry, normal turgor, no rashes or lesions noted. LABS HOSPITAL COURSE: Date of Admission:12/31/18 This is a 38 y/o F with no PMH that was admitted for acute lower back pain found to have an L5/S1 degeneration with annulus tear on MRI. She was seen by Dr. Archer for neurosurgery evaluation. - He does not believe she needs surgery at this time and referred her to pain management (Dr. Huertas) for epidural injection and he wants her to continue wearing a back brace and taking her pain medications as prescribed. - She will follow up with her PCP (Dr. Ron Butt) who will provide her with a Physical therapist to see as an outpatient. Date of Discharge: 01/03/19 Minutes to complete discharge: 3 Discharge Summary Reason For Visit: INTRACTABLE LOW BACK PAIN Current Active Problems Intractable low back pain (Acute) Condition: Stable - Instructions Diet, Activity, Other Instructions: You were admitted for lower back pain. You had a lower back scan(MRI) and it showed that you had a degeneration in your vertebrae. (L5/S1) While you were here we had the neurosurgeon evaluate you and was not recommended to have surgery at this time, which would be the last resort. - We had you see physical therapy and we would like you to follow up with physical therapy in 1 week. -You are going today to pain management ;Dr.Binod Huertas's office for epidural injections, and he will give you medication for your pain as well. follow up with Dr. Archer (neurosurgeon) in 1 week. -We would like you to follow up with your Primary care physician (Dr. Ron Butt) in 1 week. -You should continue all your home medications as prescribed. Referrals: Solomon Esquivel MD, [facility] [Staff Physician] - 01/05/19 Ron Butt MD [Staff Physician] - 01/04/19 Jose Huertas MD [Staff Physician] - 01/03/19 Disposition: HOME - Home Medications Comprehensive Discharge Medication List: Ambulatory Orders Docusate Sodium [Colace -] 300 mg PO HS #30 capsule 01/03/19 Lidocaine 5% Patch [Lidoderm -] 1 patch TP DAILY #7 patch 01/03/19 Polyethylene Glycol 3350 [Miralax 119 gm Btl -] 17 gm PO BID #1 bottle 01/03/19 Prednisone See Taper PO DAILY #17 tab.ds.pk 01/03/19 This patient is new to me today: No Emergency Visit: Yes ED Registration Date: 12/31/18 Care time: The patient presented to the Emergency Department on the above date and was hospitalized for further evaluation of their emergent condition. Critical Care patient: No - Discharge Referral Referred to [facility] No ATTENDING PHYSICIAN STATEMENT I saw and evaluated the patient. I reviewed the resident's note and discussed the case with the resident. I agree with the resident's findings and plan as documented. SUBJECTIVE: OBJECTIVE: ASSESSMENT AND PLAN:
--- NOTE | 2019-01-03 15:16 | PN ---
Progress Note (short form) - Note Progress Note: Patient stable. Plans for discharge - TLSO - Physical Therapy at Dr. Ron Diego's office - [facility] with Dr. Jose Huertas
--- NOTE | 2019-01-03 16:40 | PN ---
Teaching Attending Note Name of Resident: Ron Butt ATTENDING PHYSICIAN STATEMENT I saw and evaluated the patient. I reviewed the resident's note and discussed the case with the resident. I agree with the resident's findings and plan as documented. SUBJECTIVE: Patient is slightly better but is tearful after the physical therapy. OBJECTIVE: Vital Signs Temperature 97.7 F 01/03/19 05:34 Pulse Rate 65 01/03/19 05:34 Respiratory Rate 18 01/03/19 09:00 Blood Pressure 140/85 01/03/19 05:34 O2 Sat by Pulse Oximetry (%) 100 01/03/19 09:00 GENERAL: Awake, alert, and fully oriented, in acute distress. NECK: Normal range of motion, supple without lymphadenopathy, JVD, or masses. LUNGS: Breath sounds equal, clear to auscultation bilaterally. No wheezes, and no crackles. HEART: Regular rate and rhythm, normal S1 and S2 without murmur, rub or gallop. ABDOMEN: Soft, slightly tender left side probably referred from back, not distended, normoactive bowel sounds, MUSCULOSKELETAL: Left lower back pain , unable to ambulate, was able to ambulate only 40 feet. EXTREMITIES: warm, well-perfused. No peripheral edema. NEUROLOGICAL: Cranial nerves II-XII intact. Normal speech. PSYCHIATRIC: Cooperative. Good eye contact. Appropriate mood and affect. SKIN: Warm, dry, normal turgor, no rashes or lesions noted. CBCD WBC 10.5 K/mm3 (4.0-10.0) H 01/01/19 07:18 RBC 4.28 M/mm3 (3.60-5.2) 01/01/19 07:18 Hgb 13.1 GM/dL (10.7-15.3) 01/01/19 07:18 Hct 38.7 % (32.4-45.2) 01/01/19 07:18 MCV 90.2 fl (80-96) 01/01/19 07:18 MCHC 33.9 g/dl (32.0-36.0) 01/01/19 07:18 RDW 12.3 % (11.6-15.6) 01/01/19 07:18 Plt Count 243 K/MM3 (134-434) 01/01/19 07:18 MPV 8.6 fl (7.5-11.1) 01/01/19 07:18 CMP Sodium 137 mmol/L (136-145) 01/01/19 07:18 Potassium 3.7 mmol/L (3.5-5.1) 01/01/19 07:18 Chloride 103 mmol/L (98-107) 01/01/19 07:18 Carbon Dioxide 29 mmol/L (21-32) 01/01/19 07:18 Anion Gap 5 MMOL/L (8-16) L 01/01/19 07:18 BUN 14.4 mg/dL (7-18) 01/01/19 07:18 Creatinine 0.8 mg/dL (0.55-1.3) 01/01/19 07:18 Random Glucose 89 mg/dL (74-106) 01/01/19 07:18 Calcium 8.7 mg/dL (8.5-10.1) 01/01/19 07:18 Total Bilirubin 0.7 mg/dL (0.2-1) 01/01/19 07:18 AST 7 U/L (15-37) L 01/01/19 07:18 ALT 22 U/L (13-61) 01/01/19 07:18 Alkaline Phosphatase 75 U/L (45-117) 01/01/19 07:18 Total Protein 6.7 g/dl (6.4-8.2) 01/01/19 07:18 Albumin 3.5 g/dl (3.4-5.0) 01/01/19 07:18 Home Medications Medication Instructions Recorded RX: Docusate Sodium [Colace -] 300 mg PO HS #30 capsule 01/03/19 RX: Lidocaine 5% Patch [Lidoderm -] 1 patch TP DAILY #7 patch 01/03/19 RX: Polyethylene Glycol 3350 17 gm PO BID #1 bottle 01/03/19 [Miralax 119 gm Btl -] RX: Prednisone See Taper PO DAILY #17 tab.ds.pk 01/03/19 ASSESSMENT AND PLAN: Patient is a 38 y/o Female with no PMHx who stated that she injured her back in early December while repositioning a patient. #Low Back pain L5/S1 : there is a tear in the annulus with midline disc protrusion evident on sagittal T2#7 with minimal indentation right S1 nerve root. seen by , conservative management for now. arranged for pain management epidural injection after leaving the hospital today, also pain management will prescribe pain meds for the patient. Physical therapy as an outpatient. #Obesity: weight loss discharge patient home.
== END 2019-01-03 15:15 | disposition home or self-care (01) | DRG 347 ==
LOC: JER 16:37 → JERFT 16:37 → JERBED 21:30 → J6S 01-01 02:41
PROVIDERS: ADMIT Internal Medicine; ATTEND Internal Medicine
DX: M51.27 Other intervertebral disc displacement, lumbosacral region (principal); E66.8 Other obesity; Z68.32 Body mass index [BMI] 32.0-32.9, adult; K59.00 Constipation, unspecified
CPT/HCPCS: 36415; 72148-TC; 80053; 81003; 83735; 84100; 85025; 85610; 85730; 86850; 86870; 86900; 86901; 86902; 93005; 93010; 97116-GP; 97162-GP; 99285-25

== ENCOUNTER 2022-04-06 07:59 | Emergency (ER) | payer OTHER ==
[2022-04-06 08:16] VITALS: BP 122/65; PULSE 81; RESP 18; TEMP 97.8; BMI 34.0
[2022-04-06] MEDS ORDERED: EMTRICITABINE 200MG/TENOFOVIR 300MG PO ONE (08:39)
[2022-04-06] MEDS ORDERED: RALTEGRAVIR POTASSIUM 400 MG TAB PO ONE (08:39)
[2022-04-06] MEDS ORDERED: HIV POST EXPOSURE PROPHYLAXIS KIT PO ONE (09:14)
[2022-04-06 09:42] LABS: BASO % 0.3 % (0-2.0); EOS % 1.8 % (0-4.5); HEMATOCRIT 38.2 % (32.4-45.2); HEMOGLOBIN 12.6 GM/dL (10.7-15.3); MCH 29.5 pg (25.7-33.7); MEAN CELL VOLUME 89.4 fl (80-96); MEAN PLT VOLUME 9.2 fl (7.5-11.1); MONO % 8.4 % (3.8-10.2); NEUT % 62.5 % (42.8-82.8); PLATELET COUNT 232 10^3/uL (134-434); RBC 4.27 M/mm3 (3.60-5.2); RDW 12.8 % (11.6-15.6); WHITE BLOOD COUNT 5.8 K/mm3 (4.0-10.0)
[2022-04-06 10:01] LABS: ALBUMIN 4.1 g/dl (3.4-5.0); CALCIUM 8.9 mg/dL (8.5-10.1)
[2022-04-06 10:03] LABS: BLOOD UREA NITROGEN 13.9 mg/dL (7-18)
[2022-04-06 10:04] LABS: URIC ACID 3.7 mg/dL (2.6-7.2)
[2022-04-06 10:06] LABS: CREATININE 0.8 mg/dL (0.55-1.3); PHOSPHOROUS 3.4 mg/dL (2.5-4.9); TOT PROT 7.1 g/dl (6.4-8.2)
[2022-04-06 10:07] LABS: BILIRUBIN,TOTAL 0.7 mg/dL (0.2-1)
[2022-04-06 12:04] LABS: HIV INTERPRETATION NEGATIVE (NEGATIVE)
== END 2022-04-06 11:18 | disposition home or self-care (01) ==
LOC: JERFT 07:59 → JER 07:59 → JERFT 11:18
DX: S61.031A Puncture wound without foreign body of right thumb without damage to nail, initial encounter (principal); W46.1XXA Contact with contaminated hypodermic needle, initial encounter
CPT/HCPCS: 36415; 80053; 82465; 82977; 83615; 84100; 84478; 84550; 84702; 85025; 86704; 86803; 87340; 87389; 87517; 99283-25